=== PATIENT | male | born 1955 | race Caucasian/White ===

== ENCOUNTER 2020-10-11 08:05 | Emergency (ER) | payer BC, OTHER ==
[2020-10-11] MEDS ORDERED: Sodium Chloride 0.9% 1,000 ML IV ONE (08:25)
[2020-10-11] MEDS ORDERED: Ketorolac 15 MG/ML SDV IVPUSH ONE (08:25)
--- NOTE | 2020-10-11 08:30 | EDM.PDOC ---
ED HPI GENERAL MEDICAL PROBLEM - General Chief Complaint: Genitourinary Problem Stated Complaint: KIDNEY STONES Time Seen by Provider: 10/11/20 08:06 Source of Information: Reports: Patient History Limitations: Reports: No Limitations - History of Present Illness INITIAL COMMENTS - FREE TEXT/NARRATIVE: Patient is a 65-year-old male presents today for left-sided flank pain. He himself states the pain started around 1:30 AM and has been constant and nonradiating. States the pain is a sharp feeling and feels like his normal kidney stones. He reported some nausea but no vomiting states he still tolerating p.o. Denies any difficulty urinating. Patient denies any other medical complaints. Left Lower Back Pain Score (Numeric/FACES): 7 - Related Data Allergies Allergy/AdvReac Type Severity Reaction Status Date / Time No Known Allergies Allergy Verified 10/11/20 08:19 Home Meds: Home Meds . [No Known Home Meds] 10/11/20 [History] Past Medical History - Past Health History Medical/Surgical History: Denies Medical/Surgical History - Infectious Disease History Infectious Disease History: Reports: Measles Social & Family History - Tobacco Use Tobacco Use Status *Q: Never Tobacco User - Caffeine Use Caffeine Use: Reports: None - Recreational Drug Use Recreational Drug Use: No ED ROS GENERAL - Review of Systems Review Of Systems: See Below Constitutional: Reports: No Symptoms HEENT: Reports: No Symptoms Respiratory: Reports: No Symptoms Cardiovascular: Reports: No Symptoms Endocrine: Reports: No Symptoms GI/Abdominal: Reports: Nausea : Reports: No Symptoms Musculoskeletal: Reports: No Symptoms Skin: Reports: No Symptoms Neurological: Reports: No Symptoms Psychiatric: Reports: No Symptoms Hematologic/Lymphatic: Reports: No Symptoms Immunologic: Reports: No Symptoms ED EXAM, GI/ABD - Physical Exam Exam: See Below Exam Limited By: No Limitations General Appearance: Alert, WD/WN, No Apparent Distress Eyes: Bilateral: EOMI Head: Atraumatic Respiratory/Chest: No Respiratory Distress, Lungs Clear, Normal Breath Sounds Cardiovascular: Normal Peripheral Pulses, Regular Rate, Rhythm GI/Abdominal Exam: Normal Bowel Sounds, Soft, Non-Tender Back Exam: No: CVA Tenderness (L), CVA Tenderness (R) Extremities: Normal Inspection Neurological: Alert, Oriented, CN II-XII Intact, Normal Cognition, Normal Gait Course - Vital Signs Last Recorded V/S: Last Vital Signs Temp 96.2 F L 10/11/20 08:50 Pulse 56 L 10/11/20 10:23 Resp 16 10/11/20 08:50 BP 156/81 H 10/11/20 10:23 Pulse Ox 98 10/11/20 10:23 - Orders/Labs/Meds Labs: Laboratory Tests 10/11/20 10/11/20 10/11/20 Range/Units 08:17 09:36 09:36 WBC 8.11 (4.0-11.0) K/uL RBC 5.44 (4.50-5.90) M/uL Hgb 16.7 (13.0-17.0) g/dL Hct 49.1 (38.0-50.0) % MCV 90.3 (80.0-98.0) fL MCH 30.7 (27.0-32.0) pg MCHC 34.0 (31.0-37.0) g/dL RDW Std Deviation 46.0 (28.0-62.0) fl RDW Coeff of Eligio 14 (11.0-15.0) % Plt Count 189 (150-400) K/uL MPV 9.80 (7.40-12.00) fL Neut % (Auto) 61.4 (48.0-80.0) % Lymph % (Auto) 26.0 (16.0-40.0) % [place] % (Auto) 11.3 (0.0-15.0) % Eos % (Auto) 1.1 (0.0-7.0) % Baso % (Auto) 0.2 (0.0-1.5) % Neut # (Auto) 5.0 (1.4-5.7) K/uL Lymph # (Auto) 2.1 (0.6-2.4) K/uL [place] # (Auto) 0.9 H (0.0-0.8) K/uL Eos # (Auto) 0.1 (0.0-0.7) K/uL Baso # (Auto) 0.0 (0.0-0.1) K/uL Nucleated RBC % 0.0 /100WBC Nucleated RBCs # 0 K/uL Sodium 138 (136-148) mmol/L Potassium 4.1 (3.5-5.1) mmol/L Chloride 105 (98-107) mmol/L Carbon Dioxide 23.0 (21.0-32.0) mmol/L BUN 18 (7.0-18.0) mg/dL Creatinine 1.1 (0.8-1.3) mg/dL Est Cr Clr Drug Dosing 70.97 mL/min Estimated GFR (MDRD) > 60.0 ml/min Glucose 102 (74-106) mg/dL Calcium 8.3 L (8.5-10.1) mg/dL Total Bilirubin 0.4 (0.2-1.0) mg/dL AST 27 (15-37) IU/L ALT 39 (14-63) IU/L Alkaline Phosphatase 70 (46-116) U/L Total Protein 6.8 (6.4-8.2) g/dL Albumin 3.5 (3.4-5.0) g/dL Globulin 3.3 (2.6-4.0) g/dL Albumin/Globulin Ratio 1.1 (0.9-1.6) Urine Color YELLOW Urine Appearance CLEAR Urine pH 6.0 (5.0-8.0) Ur Specific [place] >= 1.030 (1.001-1.035) Urine Protein NEGATIVE (NEGATIVE) mg/dL Urine Glucose (UA) NEGATIVE (NEGATIVE) mg/dL Urine Ketones NEGATIVE (NEGATIVE) mg/dL Urine Occult Blood MODERATE H (NEGATIVE) Urine Nitrite NEGATIVE (NEGATIVE) Urine Bilirubin NEGATIVE (NEGATIVE) Urine Urobilinogen 0.2 (<2.0) EU/dL Ur Leukocyte Esterase NEGATIVE (NEGATIVE) Urine RBC 2-5 (0-2/HPF) Urine WBC 0-1 (0-5/HPF) Ur Epithelial Cells RARE (NONE-FEW) Urine Bacteria RARE (NEGATIVE) Meds: Medications Discontinued Medications Generic Name Dose Route Start Last Admin Trade Name Freq PRN Reason Stop Dose Admin Sodium Chloride 1,000 mls @ 999 mls/hr 10/11/20 08:25 10/11/20 08:54 Normal Saline IV 10/11/20 09:25 999 mls/hr .BOLUS ONE Administration Ketorolac Tromethamine 15 mg 10/11/20 08:25 10/11/20 08:57 Ketorolac 15 Mg/Ml Sdv IVPUSH 10/11/20 08:26 15 mg ONETIME ONE Administration Ondansetron HCl 4 mg 08/24/21 08:53 10/11/20 08:54 Ondansetron 4 Mg/2 Ml Sdv IVPUSH 10/11/20 08:54 4 mg ONETIME ONE Administration Ondansetron HCl Confirm 10/11/20 08:52 10/11/20 08:55 Ondansetron 4 Mg/2 Ml Sdv Administered 10/11/20 08:53 Not Given Dose 4 mg .ROUTE .STK-MED ONE Departure - Departure Time of Disposition: 11:10 Disposition: Home, Self-Care 01 Condition: Good Clinical Impression: Kidney stone - Discharge Information *PRESCRIPTION DRUG MONITORING PROGRAM REVIEWED*: Not Applicable *COPY OF PRESCRIPTION DRUG MONITORING REPORT IN PATIENT ARIA: Not Applicable Instructions: Renal Colic Referrals: Florentni Fermin MD [Primary Care Provider] - Forms: ED Department Discharge Additional Instructions: The following information is given to patients seen in the emergency department who are being discharged to home. This information is to outline your options for follow-up care. We provide all patients seen in our emergency department with a follow-up referral. The need for follow-up, as well as the timing and circumstances, are variable depending upon the specifics of your emergency department visit. If you don't have a primary care physician on staff, we will provide you with a referral. We always advise you to contact your personal physician following an emergency department visit to inform them of the circumstance of the visit and for follow-up with them and/or the need for any referrals to a consulting specialist. The emergency department will also refer you to a specialist when appropriate. This referral assures that you have the opportunity for follow-up care with a specialist. All of these measure are taken in an effort to provide you with optimal care, which includes your follow-up. Under all circumstances we always encourage you to contact your private physician who remains a resource for coordinating your care. When calling for follow-up care, please make the office aware that this follow-up is from your recent emergency room visit. If for any reason you are refused follow-up, please contact the [facility] Emergency Department at and asked to speak to the emergency department charge nurse. Please follow up with your primary care physician. If you do not have a primary care physician, see below: [facility] [address] [place], [place] [address] [facility] [address] [place] [address] You were seen today for pain to your side. Your CAT scan shows a possible passed stone. Your urine was not infected. Recommend you go home continue stay hydrated and follow-up with urology as needed or your primary care physician. Sepsis Event Note (ED) - Focused Exam Vital Signs: Vital Signs Temp Pulse Resp BP Pulse Ox 10/11/20 10:23 56 L 156/81 H 98 10/11/20 09:53 58 L 148/76 H 96 10/11/20 09:23 54 L 157/86 H 95 10/11/20 08:50 96.2 F L 68 16 140/87 96 10/11/20 08:20 96.8 F L 79 16 174/104 H 96 - Assessment/Plan Plan: Patient is a 65-year-old male presents today for left flank pain. Patient on exam keeps reiterating that he has a kidney stone. On exam patient has no CVA tenderness patient looks comfortable. Will obtain labs CT pain control and reassess. Patient does have some elevated blood pressure and states she does not regularly see a doctor.
[2020-10-11] MEDS ORDERED: Ondansetron 4 MG/2 ML SDV ONE (08:52)
[2020-10-11] MEDS ORDERED: Ondansetron 4 MG/2 ML SDV IVPUSH ONE (08:53)
--- NOTE | 2020-10-11 09:54 | CT ---
Indication: Left flank pain, history of kidney stones Technique: Volumetric multidetector CT images of the abdomen and pelvis were without the administration of intravenous contrast. Comparison: None available. Findings: There is basilar atelectasis versus scar. The liver is enlarged with hepatic steatosis. There is no focal abnormality. The gallbladder is unremarkable without evidence of radiopaque calculus. There is no significant common biliary ductal dilatation or abrupt cut off. The spleen is normal in attenuation and size. The stomach and duodenum are grossly unremarkable. The pancreas is normal in attenuation without significant atrophy. The adrenal glands are unremarkable. There is mild nonspecific bilateral perinephric stranding with mild prominence of the left collecting system without evidence of significant distal hydroureter or obvious obstructing radiopaque calculus. There is a mild amount of stool seen throughout the colon. There is mild distal colonic diverticulosis. The appendix is not well visualized. There is mild central addi mesentery likely representing sequela of minimal mesenteric adenitis. There is no significant mesenteric, retroperitoneal, or pelvic sidewall lymph nodes. The aorta is nonaneurysmal. There is no significant atherosclerotic disease appreciated. The solid pelvic viscera are grossly unremarkable. There is no free fluid or free air. The anterior abdominal wall is intact without significant hernias. The lumbar vertebral body heights are grossly maintained with minimal anterolisthesis of L4 on L5. There is moderate multilevel facet arthrosis. Impression: Mild prominence of the left collecting system without evidence of obvious obstructing radiopaque calculus. This may represent passage of small calculus. A nonobstructing calculus is seen within the inferior right collecting system. Otherwise, moderate hepatomegaly and hepatic steatosis. Please note that all CT scans at this facility use dose modulation, iterative reconstruction, and/or weight-based dosing when appropriate to reduce radiation dose to as low as reasonably achievable. Dictated by Roshan Brooke MD @ 10/11/2020 9:53:[address] Roshan Brooke @ Oct 11 2020 9:53AM
[2020-10-11 10:25] LABS: BLOOD UREA NITROGEN,BUN 18 mg/dL (7.0-18.0); CHLORIDE,CL 105 mmol/L (98-107); GLUCOSE RANDOM 102 mg/dL (74-106); POTASSIUM,K 4.1 mmol/L (3.5-5.1); SODIUM,NA 138 mmol/L (136-148)
== END 2020-10-11 11:47 | disposition home or self-care (01) ==
LOC: MW.ED 08:05
DX: N20.0 Calculus of kidney (principal)
CPT/HCPCS: 36415; 74176; 80053; 81001; 85025; 96374; 96375; 99284; J1885; J2405; J7030